=== PATIENT | female | born 2000 | race American Indian/Alaskan Native ===

== ENCOUNTER 2020-10-23 12:59 | Emergency (ER) | payer SELFPAY ==
--- NOTE | 2020-10-23 17:13 | Emergency Department Report ---
- General Chief Complaint: Pain General Stated Complaint: BACK PAIN, ABD PAIN, FLU SYMPTOMS PUI?: Yes Time Seen by Provider: 10/23/20 15:27 Source: patient Mode of arrival: Ambulatory Limitations: No Limitations - History of Present Illness Initial Comments: 19-year-old female presents to the ER today with complaints of flulike symptoms/Covid-like symptoms. Patient states that symptoms started about 4 days ago. She complains of generalized body aches, chills, productive cough, rhinorrhea nasal congestion and she states that she did have sore throat but this has improved. She states that she vomited about 3 times this morning. She reports upper and lower abdominal pain and also pain in her back. She denies any diarrhea. She denies any dysuria, hematuria or urinary frequency. She denies any ill contacts, or known COVID-19 contacts. She has not taken a COVID- 19 test since she has been sick. She also has not taken the COVID-19 vaccine. She states that she is also concerned she may be even though her last menstrual cycle was October 12, 2020 and she is on Nexplanon. She denies any significant past medical history. MD Complaint: cough, rhinorrhea, nasal congestion, other (Generalized body aches, chills) -: days(s) (4) - Related Data Previous Rx's Medication Instructions Recorded Last Taken Type Ibuprofen [Motrin] 600 mg PO Q8H PRN #30 tablet 10/23/20 Unknown Rx Sulfamethoxazole/Trimethoprim 1 each PO BID #14 tablet 10/23/20 Unknown Rx [Bactrim DS TAB] Allergies Allergy/AdvReac Type Severity Reaction Status Date / Time No Known Allergies Allergy Unverified 10/23/20 18:07 ED Review of Systems ROS: Stated complaint: BACK PAIN, ABD PAIN, FLU SYMPTOMS Other details as noted in HPI Comment: All other systems reviewed and negative Constitutional: chills, diaphoresis. denies: fever Eyes: denies: eye pain, eye discharge, vision change ENT: throat pain, congestion, other (Rhinorrhea). denies: ear pain, dental pain, hearing loss, epistaxis Respiratory: cough. denies: shortness of breath, SOB with exertion, SOB at rest, wheezing Cardiovascular: denies: chest pain, palpitations, dyspnea on exertion, paroxysmal nocturnal dyspnea Endocrine: no symptoms reported Gastrointestinal: abdominal pain, nausea, vomiting. denies: diarrhea, constipation, hematemesis, hematochezia Genitourinary: denies: urgency, dysuria, frequency, hematuria, discharge, abnormal menses, dyspareunia Musculoskeletal: back pain, myalgia. denies: joint swelling, arthralgia Skin: denies: rash, lesions, change in color, change in hair/nails, pruritus Neurological: headache. denies: weakness, numbness, paresthesias, confusion, abnormal gait, vertigo Psychiatric: denies: anxiety, depression, auditory hallucinations, visual hallucinations, homicidal thoughts, suicidal thoughts Hematological/Lymphatic: denies: easy bleeding, easy bruising, swollen glands ED Past Medical Hx - Past Medical History Previous Medical History?: Yes Additional medical history: UTERINE FIBROIDS - Surgical History Past Surgical History?: No - Social History Smoking Status: Current Every Day Smoker Substance Use Type: Alcohol - Medications Home Medications: Home Medications Medication Instructions Recorded Confirmed Last Taken Type Ibuprofen [Motrin] 600 mg PO Q8H PRN #30 tablet 10/23/20 Unknown Rx Sulfamethoxazole/Trimethoprim 1 each PO BID #14 tablet 10/23/20 Unknown Rx [Bactrim DS TAB] ED Physical Exam - General Limitations: No Limitations General appearance: alert, in no apparent distress, obese - Head Head exam: Present: atraumatic, normocephalic, normal inspection - Eye Eye exam: Present: normal appearance, PERRL, EOMI Pupils: Present: normal accommodation - ENT ENT exam: Present: normal exam, mucous membranes moist - Neck Neck exam: Present: normal inspection, full ROM. Absent: meningismus - Respiratory Respiratory exam: Present: normal lung sounds bilaterally. Absent: respiratory distress, wheezes, rales, rhonchi, stridor - Cardiovascular Cardiovascular Exam: Present: regular rate, normal rhythm, normal heart sounds - GI/Abdominal GI/Abdominal exam: Present: soft. Absent: distended, tenderness, guarding, rebound - Back Exam Back exam: Present: normal inspection - Neurological Exam Neurological exam: Present: alert, oriented X3, CN II-XII intact, normal gait - Psychiatric Psychiatric exam: Present: normal affect, normal mood - Skin Skin exam: Present: intact ED Course Vital Signs 10/23/20 10/23/20 10/23/20 13:31 19:25 19:26 Temperature 99.7 F H 99.3 F Pulse Rate 104 H 106 H Respiratory 20 18 Rate Blood Pressure 132/93 Blood Pressure 141/89 [Right] O2 Sat by Pulse 98 100 100 Oximetry ED Medical Decision Making - Radiology Data Radiology results: report reviewed Patient: DESMOND RUIZ MR#: [id number] : 2000 Acct:[id number] Age/Sex: 19 / F ADM Date: 10/23/20 Loc: ED Attending Dr: Ordering Physician: JATIN COOK Date of Service: 10/23/20 Procedure(s): XR chest routine 2V Accession Number(s): [id number] cc: JATIN COOK Fluoro Time In Minutes: Deltoid Chest 2 negative Signer Name: Juan Lambert MD Signed: 10/23/2020 6:51 PM Workstation Name: [id number] Transcribed By: [email or web address] Dictated By: Juan Lambert MD Electronically Authenticated By: Juan Lambert MD Signed Date/Time: 10/23/201850 DD/ 49 TD/TT: - Medical Decision Making The patient is resting comfortably, is alert and in no distress. The patient has normal mental status and is neurologically intact. The patient appears well and is able to tolerate p.o. fluids and there is no significant dehydration. There is no respiratory distress and no signs of systemic toxicity. She is neurologically intact with a normal gait. She has a soft nontender abdomen. Her urinalysis is concerning for UTI, urine culture pending. Chest x-ray shows nothing acute. She will be treated with antibiotics for UTI but I did recommend that she get an outpatient COVID-19 test as her symptoms are also concerning for COVID-19. The history, exam, diagnostic testing and current condition do not demonstrate an infectious process such as meningitis, severe pneumonia, acute respiratory distress syndrome, retropharyngeal abscess, epiglottitis, significant intra-abdominal abnormality, sepsis or other serious viral/bacterial infection requiring further testing, treatment, consultation or admission at this time. Discussed suspected diagnosis and treatment plan with patient. She expressed understanding of instructions and agree with plan. Patient was stable at time of discharge. Critical care attestation.: If time is entered above; I have spent that time in minutes in the direct care of this critically ill patient, excluding procedure time. ED Disposition Clinical Impression: Viral syndrome, UTI (urinary tract infection) Disposition: DC-01 TO HOME OR SELFCARE Is pt being admited?: No Does the pt Need Aspirin: No Condition: Stable Instructions: Urinary Tract Infection, Adult, Viral Illness, Adult Additional Instructions: Recommend that she get an outpatient COVID-19 test. Take the ibuprofen and antibiotics as prescribed. You can also take either Lynnette, Zyrtec or Claritin and Mucinex or Robitussin to help with your URI symptoms and cough. I recommend lots of fluids, as well as taking a multivitamin which includes jamin min C and vitamin D and zinc. Follow-up with your primary care doctor. Return to the ER if your symptoms changes or worsens in any way. Prescriptions: Sulfamethoxazole/Trimethoprim [Bactrim DS TAB] 1 each PO BID #14 tablet Ibuprofen [Motrin] 600 mg PO Q8H PRN #30 tablet PRN Reason: Pain Referrals: [facility] [Provider Group] - 3-5 Days Time of Disposition: 19:05
[2020-10-23] MEDS ORDERED: IBUPROFEN 600 MG TAB PO ONE (18:10)
[2020-10-23 18:19] LABS: Bacteria,Urine 4+ /HPF (Negative); Bilirubin,Urine NEG (Negative); Blood,Urine NEG (Negative); Color,Urine Amber (Yellow); HCG Qualitative,Urine Negative (Negative); Mucus,Urine 3+ /HPF
--- NOTE | 2020-10-23 18:56 | XRay Report ---
Deltoid Chest 2 negative Signer Name: Juan Lambert MD Signed: 10/23/2020 6:51 PM Workstation Name: [id number]
[2020-10-23 19:26] VITALS: BP 141/89
== END 2020-10-23 19:27 | disposition home or self-care (01) ==
LOC: ED 12:59
DX: B34.9 Viral infection, unspecified (principal); N39.0 Urinary tract infection, site not specified; F17.200 Nicotine dependence, unspecified, uncomplicated
CPT/HCPCS: 71046; 81001; 81025; 87086; 99283